=== PATIENT | female | born 1970 | race Caucasian/White ===

== ENCOUNTER 2018-08-24 20:46 | Emergency (ER) | payer OTHER ==
[2018-08-24 20:56] VITALS: PULSE 82; BMI 26.9
--- NOTE | 2018-08-24 21:02 | PDOC ---
Rapid Medical Evaluation Time Seen by Provider: 08/24/18 20:49 Medical Evaluation: Allergies Allergy/AdvReac Type Severity Reaction Status Date / Time No Known Allergies Allergy Verified 11/18/13 18:57 08/24/18 20:53 I have performed a brief in-person evaluation of this patient. The patient presents with a chief complaint of: Chest pain and GARRETT x 10 months w / neg w/u in past. Neg stress 2 years ago. [place] similar CP tonight w/ SOB and had palpitations. Denies h/o anxiety. Recent stressor recently. No recent travel. No thyroid issues Pertinent physical exam findings: Appears anxious and teary in triage I have ordered the following:EKG/labs The patient will proceed to the ED for further evaluation Discharge Disposition - Diagnosis Chest pain Qualifiers: Chest pain type: unspecified Qualified Code(s): R07.9 - Chest pain, unspecified - Referrals - Patient Instructions - Post Discharge Activity
--- NOTE | 2018-08-24 21:24 | PDOC ---
Attending Attestation - [facility] HPI: 08/24/18 21:53 The patient is a 47 year old female with a past medical history of bilateral tubal ligation here today for evaluation of episodic chest pain. The patient describes her pain as a pressure and is localized to the substernal area. She notes associated palpitations and shortness of breath during her episodes of chest pain. The patient also reports headaches localized to the front of her head and nausea. She notes getting a stress test and an EKG which came back normal and being treated for h pylori. The patient reports feeling anxious due to her chest pain. Patient denies lightheadedness. Denies fever, chills. Denies vomiting, diarrhea , abdominal pain. Denies lower extremity edema. Denies urinary symptoms. Denies neurologic symptoms. Allergies: NKA Social history: denies tobacco use Family history: no pertinent family history PCP: none reported - Physicial Exam PE: 08/24/18 21:58 GENERAL: +patient anxious. Well developed, well nourished. Awake and alert. HEENT: Normocephalic, atraumatic. PERRLA, EOMI. No conjunctival pallor. Sclera are non- icteric. Moist mucous membranes. Oropharynx is clear. NECK: Supple. Full ROM. No JVD. Carotid pulses 2+ and symmetric, without bruits. No thyromegaly. No lymphadenopathy. CARDIOVASCULAR: Regular rate and rhythm. No murmurs, rubs, or gallops. Distal pulses are 2+ and symmetric. PULMONARY: No evidence of respiratory distress. Lungs clear to auscultation bilaterally. No wheezing, rales or rhonchi. ABDOMINAL: Soft. Non-tender. Non-distended. No rebound or guarding. No organomegaly. Normoactive bowel sounds. MUSCULOSKELETAL Normal range of motion at all joints. No bony deformities or tenderness. No CVA tenderness. EXTREMITIES: No cyanosis. No clubbing. No edema. No calf tenderness. SKIN: Warm and dry. Normal capillary refill. No rashes. No jaundice. NEUROLOGICAL: Alert, awake, appropriate. Cranial nerves 2-12 intact. No deficits to light touch and temperature in face, upper extremities and lower extremities. No motor deficits in the in face, upper extremities and lower extremities. Normoreflexic in the upper and lower extremities. Normal speech. Toes are down- going bilaterally. Gait is normal without ataxia. PSYCHIATRIC: Cooperative. Good eye contact. Appropriate mood and affect. <Abdulkadir Ernst - Last Filed: 08/24/18 21:56> - Resident Resident Name: Bhargav Becerril - ED Attending Attestation I have performed the following: I have examined & evaluated the patient, The case was reviewed & discussed with the resident, I agree w/resident's findings & plan, Exceptions are as noted - HPI HPI: 08/24/18 21:23 47 yo female p/w one hour of nonradiating substernal chest pressure. She is anxious and tearful - Medical Decision Making 08/24/18 22:03 47-year-old female who experienced palpitations today and asked her called the ambulance She does not have any significant past medical history except being treated for H. pylori earlier this year. 03/02/2016. She did have an echo that showed a normal LV function and normal ejection fraction and normal left ventricular wall motion. In 2015 she also had a stress test that was negative She still having her menstruation, she does not have a history of smoking and there is no family history of early cardiac demise EKG is normal sinus rhythm with no signs of ischemia, normal QTC She denies fever or chills or nausea or vomiting or shortness of breath 08/25/18 01:16 -pt has 2 sets of negative cardiac enzymes IMP palpitations plan discharge home to follow up with PCP <Gricel Salas - Last Filed: 08/25/18 01:17>
[2018-08-24 21:45] LABS: BASO % 1.1 % (0-2.0); EOS % 1.8 % (0-4.5); HEMATOCRIT 37.6 % (32.4-45.2); HEMOGLOBIN 13.3 GM/dL (10.7-15.3); LYMPH % 42.5 % (8-40); MCH 34.4 pg (25.7-33.7); MCHC 35.3 g/dl (32.0-36.0); MEAN CELL VOLUME 97.5 fl (80-96); MEAN PLT VOLUME 9.6 fl (7.5-11.1); MONO % 9.6 % (3.8-10.2); PLATELET COUNT 293 K/MM3 (134-434); RBC 3.85 M/mm3 (3.60-5.2); RDW 13.9 % (11.6-15.6); WHITE BLOOD COUNT 8.3 K/mm3 (4.0-10.0)
[2018-08-24] MEDS ORDERED: MAG HYDROX/AL HYDROX/SIMETH -MYLANTA- ORAL SUSPENSION PO ONE (21:45)
[2018-08-24] MEDS ORDERED: RANITIDINE HCL 150 MG TABLET (FP) PO ONE (21:45)
--- NOTE | 2018-08-24 21:45 | PDOC ---
History of Present Illness - General Chief Complaint: Chest Pain Stated Complaint: CHEST PAIN Time Seen by Provider: 08/24/18 20:49 - History of Present Illness Initial Comments: The patient is a 47F w/ a history of BTL who presents for evaluation of 1 hour of substernal, non-radiating, constant chest pressure with associated palpitations. She states that she has episodes like that almost everyday. She has a recent +H.pylori s/p 6wk therapy and is not longer taking any medications (GI or otherwise). She endorses associated shortness of breath, feelings of anxiety/being extremely worried about her symptoms. She reports almost daily GARRETT as well described as frontal pressure w/o associated symptoms or neurological deficits Denies recent illness, fevers/chills, vision changes, abdominal pain, V/C/D. She is not currently on any medications She denies history of cardiac events nor family history of [place] < 50y She reports multiple cardiac workups in the past which have all been negative, including ECHO and stress test 2y ago and also having worn a halter monitor for 48 hours in the past which was neg as well. 08/24/18 21:48 Past History - Past Medical History Allergies/Adverse Reactions: Allergies Allergy/AdvReac Type Severity Reaction Status Date / Time No Known Allergies Allergy Verified 08/24/18 20:56 Home Medications: Ambulatory Orders No Home Medications 0 dose .ROUTE UTDICT 10/20/12 Clotrimazole 1% Vaginal Cream [Gyne-Lotrimin] 45 gm VG DAILY #1 tube 11/18/13 CVA: No COPD: No - Suicide/Smoking/Psychosocial Hx Smoking Status: No Smoking History: Never smoked Have you smoked in the past 12 months: No Number of Cigarettes Smoked Daily: 0 Information on smoking cessation initiated: No Hx Alcohol Use: No Drug/Substance Use Hx: No Review of Systems - Review of Systems Able to Perform ROS?: Yes Comments:: GENERAL/CONSTITUTIONAL: No fever or chills. No weakness HEAD, EYES, EARS, NOSE AND THROAT: No change in vision. No ear pain or discharge. No sore throat CARDIOVASCULAR: per HPI RESPIRATORY: Denies cough, hemoptysis GASTROINTESTINAL: No vomiting, diarrhea or constipation GENITOURINARY: No dysuria, frequency, or change in urination MUSCULOSKELETAL: No joint or muscle swelling or pain. No back pain SKIN: No rash NEUROLOGIC: No vertigo, loss of consciousness, or change in strength/sensation ENDOCRINE: No increased thirst. No abnormal weight change HEMATOLOGIC/LYMPHATIC: No anemia, easy bleeding, or history of blood clots ALLERGIC/IMMUNOLOGIC: No hives or skin allergy 08/24/18 21:22 08/24/18 21:53 Is the patient limited Slovenian proficient: No *Physical Exam - Vital Signs Last Vital Signs Temp Pulse Resp BP Pulse Ox 99.2 F 82 18 138/60 100 08/24/18 20:51 08/24/18 20:51 08/24/18 20:51 08/24/18 20:51 08/24/18 20:51 - Physical Exam Comments: GENERAL: Awake, alert, and fully oriented, in no acute distress HEAD: No signs of trauma, normocephalic, atraumatic EYES: PERRLA, EOMI, sclera anicteric, conjunctiva clear ENT: Hearing grossly normal, nares patent, oropharynx clear without exudates. Moist mucosa LUNGS: No distress, speaks full sentences, clear to auscultation bilaterally HEART: Regular rate and rhythm, normal S1 and S2, no murmurs appreciated, peripheral pulses normal and equal bilaterally ABDOMEN: Soft, nontender, normoactive bowel sounds. No guarding, no rebound EXTREMITIES : Normal inspection, Normal range of motion, no edema. No clubbing or cyanosis NEUROLOGICAL: Cranial nerves II through XII grossly intact. Normal speech, normal gait, no focal sensorimotor deficits SKIN: Warm, Dry, normal turgor, no rashes or lesions noted 08/24/18 21:22 Moderate Sedation - Procedure Monitoring Vital Signs: Procedure Monitoring Vital Signs Temperature 99.2 F 08/24/18 20:51 Pulse Rate 82 08/24/18 20:51 Respiratory Rate 18 08/24/18 20:51 Blood Pressure 138/60 08/24/18 20:51 O2 Sat by Pulse Oximetry (%) 100 08/24/18 20:51 ED Treatment Course - LABORATORY CBC & Chemistry Diagram: 08/24/18 21:13 08/24/18 21:13 - RADIOLOGY Radiology Studies Ordered: Category Date Time Status CHEST X-RAY PORTABLE* [RAD] Stat Radiology 08/24/18 21:20 Ordered Medical Decision Making - Medical Decision Making The patient is a 47F who presents for evaluation of anxiety with associated chest pressure and palpitation. Hx of neg cardiac w/u ED Course CMP, CBC, cardiac profile CXR ECG No leukocytosis No anemia Lytes wnl LFTs wnl No FARIDA ECG NSR w/o ST elevations or signs of ischemia 08/24/18 22:15 Initial Trop I neg 08/24/18 22:28 CXR w/o evidence of PNA, PNX, or other acute pathology 08/24/18 23:51 Second Trop I neg Plan for D/C w/ f/u Discharge instructions and return precautions given Patient in agreement and verbalizes understanding Dispo: home 08/25/18 01:12 *DC/Admit/Observation/Transfer Diagnosis at time of Disposition: Anxiety Chest pain Qualifiers: Chest pain type: unspecified Qualified Code(s): R07.9 - Chest pain, unspecified - Discharge Dispostion Condition at time of disposition: Stable Decision to Admit order: No - Referrals Referrals: Anna Wiggins MD [Staff Physician] - Timi Hanley MD [Non Staff, Medical] - Evelyn Roper MD [Staff Physician] - - Patient Instructions Printed Discharge Instructions: DI for Gastroesophageal Reflux Disease (GERD), DI for Anxiety -- Adult Additional Instructions: You were seen in the Emergency Department for chest pain, palpitations, and anxiety. Please review the handout provided at discharge. Please follow up with your primary care provider and referral. Return to the Emergency Department if you develop fevers/chills, vision changes , worsening symptoms, or new/concerning symptoms. - Post Discharge Activity
[2018-08-24] MEDS ORDERED: MAG HYDROX/AL HYDROX/SIMETH 30 ML UNIT-DOSE CUP ONE (21:48)
[2018-08-24] MEDS ORDERED: RANITIDINE HCL 150 MG TABLET (FP) ONE (21:48)
[2018-08-24 22:14] LABS: ALBUMIN 3.8 g/dl (3.4-5.0); ALK PHOS 59 U/L (45-117); ANION GAP 8 MMOL/L (8-16); BILIRUBIN,TOTAL 0.3 mg/dL (0.2-1); BLOOD UREA NITROGEN 10 mg/dL (7-18); CALCIUM 8.9 mg/dL (8.5-10.1); CHLORIDE 105 mmol/L (98-107); CO2 27 mmol/L (21-32); CREATININE 0.8 mg/dL (0.55-1.3); GLUCOSE,RANDOM 98 mg/dL (74-106); POTASSIUM 3.9 mmol/L (3.5-5.1); SGOT/AST 14 U/L (15-37); SGPT/ALT 26 U/L (13-61); SODIUM 140 mmol/L (136-145); TOT PROT 7.1 g/dl (6.4-8.2)
[2018-08-24 22:55] VITALS: BP 134/70; TEMP 98.9
--- NOTE | 2018-08-25 12:57 | EKG ---
Test Reason : Blood Pressure : / mmHG Vent. Rate : 078 BPM Atrial Rate : 078 BPM P-R Int : 154 ms QRS Dur : 088 ms QT Int : 388 ms P-R-T Axes : 048 029 019 degrees QTc Int : 442 ms NORMAL SINUS RHYTHM NORMAL ECG NO PREVIOUS ECGS AVAILABLE Confirmed by Nils Baltazar ([id number]) on 08/25/2018 12:57:28 PM Referred By: Confirmed By:Nils Baltazar
== END 2018-08-25 01:36 | disposition home or self-care (01) ==
LOC: JER 20:46
DX: R07.9 Chest pain, unspecified (principal); F41.9 Anxiety disorder, unspecified
CPT/HCPCS: 36415; 71045-TC-FY; 80053; 82550; 84443; 84484; 85025; 93005; 93010; 99283-25